=== PATIENT | male | born 1980 | race Caucasian/White ===

== ENCOUNTER 2022-05-09 09:15 | Outpatient (RCR) | payer BC, SELFPAY | END 2022-08-14 10:02 | disposition home or self-care (01) | PROVIDERS: PCP Family Medicine; Visit Provider Orthopaedic Surgery Orthopaedic Surgery of the Spine | DX: M54.50 Low back pain, unspecified (principal); Z51.89 Encounter for other specified aftercare | CPT/HCPCS: 97110; 97140; 97161 ==

== ENCOUNTER 2024-09-25 10:04 | Outpatient (CLI) | payer BC, SELFPAY ==
--- NOTE | 2024-09-25 11:35 | P.ANES_ITS ---
Anesthesia Charges Start Date/Time Anesthesia Start Date: 09/25/24 Anesthesia Start Time: 11:15 Stop Date/Time Anesthesia Stop Date: 09/25/24 Anesthesia Stop Time: 11:34 Coding CPT Codes CPT Codes: DHIRAJ LWR INTST SCR COLSC - 47034 ([id number]) P2 - PATIENT W/MILD SYST DISEASE, QX - ABRASIVE GRADER HELPER SVC W/ MD MED DIRECTION, QK - NURSING ADMIN 2-4 CNCRNT ANES PROC
--- NOTE | 2024-09-25 11:35 | W.ANESCHARGE ---
Anesthesia Charges Start Date/Time Anesthesia Start Date: 09/25/24 Anesthesia Start Time: 11:15 Stop Date/Time Anesthesia Stop Date: 09/25/24 Anesthesia Stop Time: 11:34 Coding CPT Codes CPT Codes: DHIRAJ LWR INTST SCR COLSC - 05467 ([id number]) P2 - PATIENT W/MILD SYST DISEASE, QX - WOOD CUT ENGRAVER SVC W/ MD MED DIRECTION, QK - POULTRY BARN MANAGER 2-4 CNCRNT ANES PROC
--- NOTE | 2024-09-25 11:37 | P.ANES_ITS ---
Anesthesia Charges Start Date/Time Anesthesia Start Date: 09/25/24 Anesthesia Start Time: 11:15 Stop Date/Time Anesthesia Stop Date: 09/25/24 Anesthesia Stop Time: 11:34 Coding CPT Codes CPT Codes: DHIRAJ LWR INTST SCR COLSC - 49727 ([id number]) P2 - PATIENT W/MILD SYST DISEASE, QK - PENS AND PENCILS DIPPER 2-4 CNCRNT ANES PROC, QX - SECURITY AND PRIVACY CONSULTANT SVC W/ MD MED DIRECTION
--- NOTE | 2024-09-25 11:37 | W.ANESCHARGE ---
Anesthesia Charges Start Date/Time Anesthesia Start Date: 09/25/24 Anesthesia Start Time: 11:15 Stop Date/Time Anesthesia Stop Date: 09/25/24 Anesthesia Stop Time: 11:34 Coding CPT Codes CPT Codes: DHIRAJ LWR INTST SCR COLSC - 52581 ([id number]) P2 - PATIENT W/MILD SYST DISEASE, QK - DRIVER EXAMINER 2-4 CNCRNT ANES PROC, QX - MIDDLE STITCHER SVC W/ MD MED DIRECTION
== END 2024-09-25 10:05 | disposition home or self-care (01) ==
LOC: OP CLINIC 10:06
PROVIDERS: PCP Family Medicine; Visit Provider Internal Medicine Gastroenterology
DX: Z12.11 Encounter for screening for malignant neoplasm of colon (principal)
CPT/HCPCS: 00812; 45378; J2704